=== PATIENT | male | born 1995 | race Caucasian/White ===

== ENCOUNTER 2016-09-07 09:18 | Emergency (ER) | payer BC ==
[2016-09-07 09:31] VITALS: BP 144/79
--- NOTE | 2016-09-07 09:35 | UC ---
Ear Complaint HPI - HPI Summary HPI Summary: last month had an ear infection, recently has had ringing and pain in his right ear now he cannot hear well out of it--not otherwise ill - History of Current Complaint Chief Complaint: UCEar Stated Complaint: EAR PAIN Time Seen by Provider: 09/07/16 09:34 Hx Obtained From: Patient Onset/Duration: Sudden Onset, Lasting Days Severity Initially: Mild Severity Currently: Moderate Aggravating Factors: Nothing Alleviating Factors: Nothing Associated Signs/Symptoms: Positive: Hearing Loss - right - Allergies/Home Medications Allergies/Adverse Reactions: Allergies Allergy/AdvReac Type Severity Reaction Status Date / Time No Known Allergies Allergy Verified 09/07/16 09:31 PMH/Surg Hx/FS Hx/Imm Hx Previously Healthy: No Respiratory History Of: Reports: Asthma - Surgical History Surgical History: Yes Surgery Procedure, Year, and Place: Tonsillectomy - Family History Known Family History: Positive: None - Social History Occupation: Employed Full-time - [employer] Lives: With Family Alcohol Use: Rare Substance Use Type: None Substance Use Comment - Amount & Last Used: one week Smoking Status (MU): Light Every Day Tobacco Smoker Type: Cigarettes Amount Used/How Often: 1/5 PPD Length of Time of Smoking/Using Tobacco: 4 Years Have You Smoked in the Last Year: Yes Cessation Counseling: Counseled 3+Min - 10 Min - Immunization History Most Recent Influenza Vaccination: "I don't take flu shots." Review of Systems Constitutional: Negative Skin: Negative Eyes: Negative ENT: Ear Ache - hearing loss right ear Respiratory: Negative Cardiovascular: Negative Gastrointestinal: Negative Genitourinary: Negative Motor: Negative Neurovascular: Negative Musculoskeletal: Negative Neurological: Negative Psychological: Negative All Other Systems Reviewed And Are Negative: Yes Physical Exam Triage Information Reviewed: Yes Appearance: Well-Appearing, No Pain Distress, Well-Nourished Vital Signs: Initial Vital Signs Temp 98.2 F 09/07/16 09:24 Pulse 96 09/07/16 09:24 Resp 16 09/07/16 09:24 BP 144/79 09/07/16 09:24 Pulse Ox 99 09/07/16 09:24 Vital Signs Reviewed: Yes Eye Exam: Normal Eyes: Positive: Conjunctiva Clear ENT Exam: Other ENT: Positive: Hearing grossly normal, Pharynx normal, TMs normal - left, Other : - right tm cerumen impaction. Negative: Nasal congestion, Nasal drainage, Tonsillar swelling, Tonsillar exudate, Trismus, Muffled/hoarse voice Dental Exam: Normal Neck exam: Normal Neck: Positive: Supple, Nontender, No Lymphadenopathy Respiratory Exam: Normal Respiratory: Positive: Chest non-tender, Lungs clear, Normal breath sounds, No respiratory distress, No accessory muscle use Cardiovascular Exam: Normal Cardiovascular: Positive: RRR, No Murmur, Pulses Normal, Brisk Capillary Refill Musculoskeletal Exam: Normal Musculoskeletal: Positive: Strength Intact, ROM Intact, No Edema Neurological Exam: Normal Neurological: Positive: Alert, Muscle Tone Normal Psychological Exam: Normal Skin Exam: Normal Re-Evaluation - Re-Evaluation First Eval Change: Improved - Cerumen cleared---tm [place] poor light reflex--hearing better but ear still feels full and uncomfortable Ear Complaint Course/Dx - Course Course Of Treatment: Zyrtec-D, Flonase, tylenol, ibuprofen, smoking cesation information follow with pcp later this week as planned for re-check - Differential Dx/Diagnosis Differential Diagnosis/HQI/PQRI: Cerumen Impaction, Otitis Externa, Otitis Media , Perforated TM, URI Provider Diagnoses: Cerumen impaction (r) resolved, Eustation tube dysfunction ( r) nicotine dependant Discharge - Discharge Plan Condition: Stable Disposition: HOME Prescriptions: Cetirizine-Pseudoephedrine [Zyrtec-D Allergy/Congesti] 1 tab PO BID #30 tab Fluticasone NASAL SPRAY 50MCG* [Flonase NASAL SPRAY 50MCG*] 2 spray BOTH NARES DAILY #1 btl Patient Education Materials: How to Stop Smoking (ED), Cerumen Impaction (ED), Cigarette Smoking and Your Health (GEN), Eustachian Tube Dysfunction (GEN), How to Use Nasal [place] (ED) Forms: *Work Release Referrals: Landy Up PA [Physician Warehouse Handler] - (as planned this week) No Primary Care Phys,NOPCP [Primary Care Provider] -
== END 2016-09-07 10:16 | disposition home or self-care (01) ==
LOC: UCCORT 09:18
DX: H69.91 Unspecified Eustachian tube disorder, right ear (principal); H91.91 Unspecified hearing loss, right ear; H61.21 Impacted cerumen, right ear; J45.909 Unspecified asthma, uncomplicated; F17.210 Nicotine dependence, cigarettes, uncomplicated; Z71.6 Tobacco abuse counseling
CPT/HCPCS: 99213; G0463

== ENCOUNTER 2017-11-29 09:11 | Emergency (ER) | payer BC ==
[2017-11-29 09:55] VITALS: BP 112/75
--- NOTE | 2017-11-29 10:48 | UC ---
Ear Complaint HPI - HPI Summary HPI Summary: Pt with B/L myringotomy here w/ abrupt "popping" sensation in Lt ear last night while on his computer. This was followed by wetness in his ear and sensation of fullness "like a cotton ball was expanding in my ear". He tugged on his earlobe to wiggle his ear as this sometimes help when his ear pops but no change in sx. He felt the wetness in his ear and discovered blood. Had brief midl dizziness with this episode however that has resolved and no sx today. Denies fever, chills, otalgia (during episode and now), nasal congestion, neck/jaw pain, headache, neck stiffness, difficulty breathing or swallowing. He reports he had tubes placed for condition of reduced hearing and tinnitus - no relief since tubes placed by Joon. - History of Current Complaint Hx Obtained From: Patient Pain Intensity: 0 <Vania Tong - Last Filed: 11/29/17 10:43> <Halie Marie - Last Filed: 11/29/17 20:38> - History of Current Complaint Chief Complaint: UCEar Stated Complaint: LEFT EAR COMPLAINT Time Seen by Provider: 11/29/17 10:26 - Allergies/Home Medications Allergies/Adverse Reactions: Allergies Allergy/AdvReac Type Severity Reaction Status Date / Time No Known Allergies Allergy Verified 09/07/16 09:31 Home Medications: Home Medications NK [No Home Medications Reported] 11/29/17 [History Confirmed 11/29/17] PMH/Surg Hx/FS Hx/Imm Hx Previously Healthy: Yes Other History Of: Negative For: Anticoagulant Therapy - no h/o bleeding d/o, abnormal bleeding - Surgical History Surgical History: Yes Surgery Procedure, Year, and Place: Tonsillectomy. Ear tubes bilat 2017 - Family History Known Family History: Positive: None - Social History Alcohol Use: Rare Substance Use Type: None Substance Use Comment - Amount & Last Used: one week Smoking Status (MU): Light Every Day Tobacco Smoker Type: Cigarettes Amount Used/How Often: 1/5 PPD Length of Time of Smoking/Using Tobacco: 4 Years Have You Smoked in the Last Year: Yes - Immunization History Most Recent Influenza Vaccination: "I don't take flu shots." <Vania Tong - Last Filed: 11/29/17 10:43> Review of Systems Constitutional: Negative Skin: Negative Eyes: Negative ENT: Other - ear "pop" followed by bloody otorrhea Respiratory: Negative Cardiovascular: Negative Gastrointestinal: Negative Motor: Negative Neurovascular: Negative Musculoskeletal: Negative Neurological: Negative Psychological: Negative Is Patient Immunocompromised?: No All Other Systems Reviewed And Are Negative: Yes <Vania Tong - Last Filed: 11/29/17 10:43> Physical Exam Triage Information Reviewed: Yes Appearance: Well-Appearing, No Pain Distress, Well-Nourished Vital Signs: Initial Vital Signs Temp 98.0 F 11/29/17 09:51 Pulse 74 11/29/17 09:51 Resp 14 11/29/17 09:51 BP 112/75 11/29/17 09:51 Pulse Ox 97 11/29/17 09:51 Vital Signs Reviewed: Yes Eye Exam: Normal ENT: Positive: Hearing grossly normal, Pharynx normal, TMs normal - Rt - clear TM w/ blue tube in place - no drainage, EAC clear Lt - EAC w/ scant BRB in canal - blue tube appears to be pushed into TM so that stopping point is making full contact with TM - no active draniage and TM is clear - no bulging, no erythema, no vesicles, Uvula midline. Negative: Pharyngeal erythema, Nasal congestion, Nasal drainage, TM bulging, TM dull, TM red, Tonsillar swelling, Tonsillar exudate, Trismus, Muffled voice, Hoarse voice, Sinus tenderness Neck exam: Normal Neck: Positive: Supple, Nontender, No Lymphadenopathy Respiratory Exam: Normal Respiratory: Positive: Normal breath sounds Cardiovascular Exam: Normal Musculoskeletal Exam: Normal Musculoskeletal: Positive: Strength Intact Neurological Exam: Normal Neurological: Positive: Alert, Muscle Tone Normal Psychological Exam: Normal Skin Exam: Normal <Vania Tong - Last Filed: 11/29/17 10:43> Vital Signs: Initial Vital Signs Temp 98.0 F 11/29/17 09:51 Pulse 74 11/29/17 09:51 Resp 14 11/29/17 09:51 BP 112/75 11/29/17 09:51 Pulse Ox 97 11/29/17 09:51 <Halie Marie - Last Filed: 11/29/17 20:38> Ear Complaint Course/Dx - Course Course Of Treatment: Cause of "pop" with bloody otorrhea unknown - does not appear to be actively bleeding at present. Suspect tube was pushed back into inner ear further, possibly causing internal injury. Pt's sx do not reveal emergent pathology however will place a cotton ball and advise keeping ear dry until seen by Dr. Dupree tomorrow. If danger s/sx present, will go to ED - Differential Dx/Diagnosis Provider Diagnoses: Left ear bleeding <Vania Tong - Last Filed: 11/29/17 10:43> Discharge - Sign-Out/Discharge Documenting (check all that apply): Discharge/Admit/Transfer - Billing Disposition and Condition Condition: STABLE Disposition: HOME <Vania Tong - Last Filed: 11/29/17 10:43> - Billing Disposition and Condition Condition: STABLE Disposition: HOME <Halie Marie - Last Filed: 11/29/17 20:38> - Discharge Plan Condition: Stable Disposition: HOME Patient Education Materials: Ruptured Eardrum (ED) Referrals: Louis Dupree MD [Medical Doctor] - Additional Instructions: You appear to have an injury of your Left inner ear however the definitive cause is not clear here today. It is advised that you place a cotton ball in the ear of your canal to protect your inner ear and absorb any further drainage that may emerge. Follow-up with Dr. Dupree tomorrow - call in the morning. *If in the meantime you develop pain, dizziness, change in hearing, fever, headache, neck pain/stiffness, difficulty swallowing or breathing, go to the ED Attestation Statement User Type: Provider - I was available for consult. This patient was seen by the FRANCISCO. The patient was not presented to, seen by, or examined by me. -Burak <Halie Marie - Last Filed: 11/29/17 20:38>
== END 2017-11-29 11:07 | disposition home or self-care (01) ==
LOC: UCCORT 09:11
DX: H92.22 Otorrhagia, left ear (principal); F17.210 Nicotine dependence, cigarettes, uncomplicated
CPT/HCPCS: 99211; G0463